=== PATIENT | female | born 1940 | race Caucasian/White ===

== ENCOUNTER 2023-06-05 20:42 | Emergency (ER) | payer OTHER ==
[~2023-06-05] VITALS: Ht 172.7 cm; Wt 76.7 kg
[2023-06-05 20:42] VITALS: BP 120/63; PULSE 90; RESP 17; TEMP 98; O2SAT 98
[~2023-06-05 20:42] MED LIST: ATEN100T2 PO; GLU500 PO
[2023-06-05 21:31] VITALS: O2SAT 98
[2023-06-05] MEDS ORDERED: IBUPROFEN 600 MG TAB PO ONE (21:35)
[2023-06-05] MEDS ORDERED: NAPR-54 PO (22:38)
== END 2023-06-05 22:40 | disposition home or self-care (01) ==
LOC: MED 20:42
DX: S20.20XA Contusion of thorax, unspecified, initial encounter (principal); E11.9 Type 2 diabetes mellitus without complications; I10 Essential (primary) hypertension; Z88.0 Allergy status to penicillin; Z88.1 Allergy status to other antibiotic agents; Z79.899 Other long term (current) drug therapy; Z79.84 Long term (current) use of oral hypoglycemic drugs; W19.XXXA Unspecified fall, initial encounter; Y93.89 Activity, other specified; Y92.89 Other specified places as the place of occurrence of the external cause; Y99.8 Other external cause status
CPT/HCPCS: 71101; 99283